=== PATIENT | male | born 1965 | race Caucasian/White ===

== ENCOUNTER 2019-07-20 22:31 | Emergency (ER) | payer OTHER ==
[~2019-07-20] VITALS: Ht 185.4 cm; Wt 87.5 kg
[~2019-07-20 22:31] MED LIST: FLOMAX PO; IBUPROFEN 600600 M1 PO; LORTAB 7.5/5001 TA1 PO; NOHOMEMEDICATIONS; PERCOCET 5-3251 EACH PO; ZOCOR; ZOFRAN ODT4 MG PO
[2019-07-20 22:48] LABS: URINE BILIRUBIN NEGATIVE (Negative); URINE BLOOD 2+ (Negative); URINE CLARITY CLEAR; URINE COLOR YELLOW; URINE GLUCOSE-RANDOM* NEGATIVE (Negative); URINE KETONES NEGATIVE (Negative); URINE LEUKOCYTES-REFLEX NEGATIVE (Negative); URINE NITRITE-REFLEX NEGATIVE (Negative); URINE PROTEIN (DIPSTICK) NEGATIVE (Negative); URINE SPECIFIC GRAVITY >= 1.030 (1.005-1.035); URINE UROBILINOGEN 0.2 E.U./dl (0.2-1.0)
[2019-07-20 23:08] LABS: BACTERIA-REFLEX 1-9 Few /HPF (None Seen); SQUAMOUS 0-3 Few /LPF (0-3); URINE WBC-REFLEX 0-5 Rare /HPF (0-5)
[2019-07-20 23:09] LABS: CALCIUM OXALATE 0-3 Few /LPF (None Seen); HYALINE CASTS 0-3 Few /LPF (None Seen); MUCUS >6 Heavy strn/LPF (None Seen)
[2019-07-20 23:37] LABS: ABSOLUTE NEUTROPHILS 13.7 thou/uL (1.4-8.2); BASOPHILS 0.2 % (0.0-2.0); EOSINOPHILS 0.6 % (0.0-3.0); HEMATOCRIT 42.3 % (42.0-52.0); HEMOGLOBIN 13.8 gm/dL (14.0-18.0); LYMPHOCYTES 10.4 % (24.0-44.0); MCH 30.4 pg (26.0-34.0); MCHC 32.7 g/dL (28.0-37.0); MONOCYTES 5.6 % (1.0-8.0); PLATELET COUNT 264 thou/uL (150-400); POLYS 83.2 % (36.0-66.0); RBC 4.54 mil/uL (4.50-6.00); RDW 12.7 % (10.5-14.5); WBC 16.5 thou/uL (4.0-11.0)
[2019-07-20 23:45] LABS: CALCIUM 9.7 mg/dL (8.5-10.1); CREATININE 1.4 mg/dL (0.7-1.3); POTASSIUM 4.3 mmol/L (3.5-5.1)
[2019-07-21 00:26] VITALS: BP 136/73
[2019-07-21] MEDS ORDERED: ZOFRAN ODT4 MG PO ×2 (00:31→00:48)
[2019-07-21] MEDS ORDERED: FLOMAX0.4 MG PO ×2 (00:31→00:48)
[2019-07-21] MEDS ORDERED: NORCO 5-325 TA1 EAC1 PO ×2 (00:31→00:46)
== END 2019-07-21 00:40 | disposition home or self-care (01) ==
LOC: ER 22:31
PROVIDERS: Emergency Medicine
DX: N20.0 Calculus of kidney (principal); E78.00 Pure hypercholesterolemia, unspecified